=== PATIENT | female | born 1985 | race Caucasian/White ===

== ENCOUNTER 2023-08-14 07:13 | Emergency (ER) | payer OTHER ==
[~2023-08-14] VITALS: Ht 152.4 cm; Wt 145.1 kg
[2023-08-14 07:26] VITALS: O2SAT 97
[2023-08-14] MEDS ORDERED: VALA100026 PO (08:02)
[2023-08-14] MEDS ORDERED: PRED50TA PO (08:02)
[2023-08-14] MEDS ORDERED: HYDR-3980 PO (08:02)
== END 2023-08-14 08:27 | disposition home or self-care (01) ==
LOC: ER 07:13
DX: G51.0 Bell's palsy (principal); Z79.899 Other long term (current) drug therapy
CPT/HCPCS: A4663

== ENCOUNTER 2023-08-20 07:20 | Emergency (ER) | payer MEDICAID, OTHER ==
[~2023-08-20] VITALS: Ht 152.4 cm; Wt 145.1 kg
[~2023-08-20 07:20] MED LIST: HYDR-3980 PO; PRED50TA PO; VALA100026 PO
[2023-08-20] MEDS ORDERED: KETOROLAC TROMETHAMINE 15 MG INJ IM ONE (08:00)
[2023-08-20] MEDS ORDERED: KETOROLAC TROMETHAMINE 15 MG INJ ONE (08:01)
[2023-08-20] MEDS ORDERED: IBUP-1955 PO (08:04)
[2023-08-20] MEDS ORDERED: GABA-532 PO (08:04)
[2023-08-20 08:13] VITALS: BP 142/79; TEMP 98.2; O2SAT 98
== END 2023-08-20 08:13 | disposition home or self-care (01) ==
LOC: ER 07:20
DX: G51.0 Bell's palsy (principal); Z79.899 Other long term (current) drug therapy
CPT/HCPCS: 99283; 96372; J1885; A4663